=== PATIENT | male | born 1980 | race Two or more races ===

== ENCOUNTER 2016-07-08 09:10 | Inpatient (IN) | payer OTHER ==
[2016-07-08 09:37] VITALS: BMI 29.7
--- NOTE | 2016-07-08 11:28 | HP ---
COWS - Scale Resting Pulse: 1= [place] 81-100 Sweatin=Flushed/Facial Moisture Restless Observation: 3= Extraneous Movement Pupil Size: 2= Moderately Dilated Bone or Joint Aches: 2= Severe Diffuse Aches Runny Nose/ Eye Tearin= Runny Nose/Eyes GI Upset > 30mins: 3= Vomiting/Diarrhea Tremor Observation: 2= Slight Tremor Visible Yawning Observation: 2= >3x During Session Anxiety or Irritability: 2=Irritable/Anxious Goose Flesh Skin: 0=Smooth Skin COWS Score: 21 Admission ROS BHS - HPI Chief Complaint: i need help to stop using percocet and marijuana,alchohol abused Allergies/Adverse Reactions: Allergies Allergy/AdvReac Type Severity Reaction Status Date / Time lactose Allergy Severe Verified 07/08/16 10:05 History of Present Illness: this 36 years old male with percocet ans marijuana dependence,withdrawal,never been in detox hypertension non compliance nicotine dependence Exam Limitations: No Limitations - Ebola screening Have you traveled outside of the country in the last 21 days: No Have you had contact with anyone from an Ebola affected area: No Have you been sick,other than usual withdrawal symptoms: No Do you have a fever: No - Review of Systems Constitutional: Chills, Diaphoresis, Loss of Appetite, Malaise, Night Sweats, Changes in sleep, Weakness EENT: reports: Tearing, Nose Congestion Respiratory: reports: No Symptoms reported Cardiac: reports: No Symptoms Reported GI: reports: Nausea, Poor Appetite, Vomiting, Abdominal cramping : reports: No Symptoms Reported Musculoskeletal: reports: Back Pain, Joint Pain, Muscle Pain Integumentary: reports: Dryness Neuro: reports: Headache, Tremors Endocrine: reports: No Symptoms Reported Hematology: reports: No Symptoms Reported Psychiatric: reports: No Sypmtoms Reported Other Systems: Reviewed and Negative Patient History - Patient Medical History Hx Asthma: No Hx Chronic Obstructive Pulmonary Disease (COPD): No Hx Cardiac Disorders: No Hx Hypertension: Yes (Pt has been non-compliant meds.) Hx Seizures: No Hx Diabetes: No Hx Gastrointestinal Disorders: Yes (GERD) Hx Genitourinary Disorders: No Hx Sexually Transmitted Disorders: No Hx Renal Disease (ESRD): No Hx Thyroid Disease: No Hx Human Immunodeficiency Virus (HIV): No (last 01/09 negfative) Hx Hepatitis C: No Hx Depression: No Hx Suicide Attempt: No Hx Bipolar Disorder: No Hx Schizophrenia: No Other Medical History: no suicidal,no homicidal - Patient Surgical History Past Surgical History: Yes Hx Neurologic Surgery: No Hx Cataract Extraction: No Hx Cardiac Surgery: No Hx Lung Surgery: No Hx Breast Surgery: No Hx Breast Biopsy: No Hx Abdominal Surgery: No Hx Appendectomy: Yes (1998) Hx Cholecystectomy: No Hx Genitourinary Surgery: No Hx Section: No Hx Orthopedic Surgery: No Anesthesia Reaction: No - PPD History Previous Implant?: Yes Documented Results: Positive w/o proof Implanted On Prior R Admission?: No PPD to be Administered?: No - Smoking Cessation Smoking history: Never smoked Aproximately how many cigarettes per day: 0 - Substance & Tx. History Hx Alcohol Use: Yes Hx Substance Use: Yes Substance Use Type: Alcohol, Marijuana, Opiates Hx Substance Use Treatment: No - Substances Abused Marijuana/Hashish Route: Smoking Frequency: Daily Amount used: $20 Age of first use: 12 Date of Last Use: 07/08/16 Alcohol Route: Oral Frequency: 3-6 times per week Amount used: 1 pint cognac and up Age of first use: 15 Date of Last Use: 07/06/16 percocets Route: Oral Frequency: Daily Amount used: 30-40mg Age of first use: 35 Date of Last Use: 07/08/16 Family Disease History - Family Disease History Family History: Denies Admission Physical Exam S - Vital Signs Vital Signs: Vital Signs - 24 hr 07/08/16 09:35 Temperature 98.7 F Pulse Rate 83 Respiratory 18 Rate Blood Pressure 162/112 - Physical General Appearance: Yes: Moderate Distress, Tremorous, Irritable, Sweating, Anxious HEENTM: Yes: Nasal Congestion Respiratory: Yes: Lungs Clear Neck: Yes: Within Normal Limits Breast: Yes: Within Normal Limits Cardiology: Yes: Within Normal Limits, Regular Rhythm, Regular Rate, S1, S2 Abdominal: Yes: Within Normal Limits, Non Tender, Flat, Soft Genitourinary: Yes: Within Normal Limits Back: Yes: Muscle Spasm Musculoskeletal: Yes: Back pain, Joint Stiffness, Muscle Pain Extremities: Yes: Tremors Neurological: Yes: 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-XII NML intact, Fully Oriented, Alert, Motor Strength 5/5 Integumentary: Yes: Dry Lymphatic: Yes: Within Normal Limits - Diagnostic (1) Opioid dependence with withdrawal Current Visit: Yes Status: Acute (2) Cannabis dependence Current Visit: Yes Status: Acute (3) Alcohol dependence Current Visit: Yes Status: Acute (4) GERD (gastroesophageal reflux disease) Current Visit: Yes Status: Acute (5) PPD positive, treated Current Visit: Yes Status: Acute Cleared for Admission [facility] - Detox or Rehab [facility] Level of Care: Medically Managed Detox Regimen/Protocol: Methadone S Breath Alcohol Content Breath Alcohol Content: 0 Urine Drug Screen - Results Drug Screen Negative: No Urine Drug Screen Results: THC-Marijuana, OXY-Oxycodone
[2016-07-08] MEDS ORDERED: hydrOXYzine PAMOATE 50 MG CAPSULE (FP) PO PRN (11:39)
[2016-07-08] MEDS ORDERED: guaiFENesin/D-METHORPHAN HB 10 ML UNIT-DOSE CUPS PO PRN (11:39)
[2016-07-08] MEDS ORDERED: MENTHOL/PHENOL 1 EACH UD MM PRN (11:39)
[2016-07-08] MEDS ORDERED: MAGNESIUM CITRATE 300 ML BOTTLE PO PRN (11:39)
[2016-07-08] MEDS ORDERED: diphenhydrAMINE HCL 50 MG CAPSULE PO PRN (11:39)
[2016-07-08] MEDS ORDERED: ACETAMINOPHEN 325 MG TABLET (FP) PO PRN (11:39)
[2016-07-08] MEDS ORDERED: MAGNESIUM HYDROX 2400MG/30ML ORAL SUSPENSION 30 ML CUP PO PRN (11:39)
[2016-07-08] MEDS ORDERED: LOPERAMIDE HCL 2 MG CAPSULE PO PRN (11:39)
[2016-07-08] MEDS ORDERED: IBUPROFEN 400 MG TABLET (FP) PO PRN (11:39)
[2016-07-08] MEDS ORDERED: P-EPHED 60MG/TRIPROLIDI 2.5MG TABLET PO PRN (11:39)
[2016-07-08] MEDS ORDERED: HYDROCHLOROTHIAZIDE 25 MG TABLET (FP) PO ONE (12:12)
[2016-07-08] MEDS ORDERED: amLODIPine BESYLATE 10 MG TABLET (FP) PO ONE (12:13)
[2016-07-08] MEDS ORDERED: METHADONE HCL 10 MG TABLET (FOR DETOX USE ONLY) PO ONE ×2 (12:13→23:00)
[2016-07-08] MEDS ORDERED: cloNIDine HCL 0.1 MG TABLET PO ONE (12:14)
[2016-07-08] MEDS: diazePAM 5 MG TABLET PO PRN ×2 (12:42→17:38)
[2016-07-08 16:01] LABS: URINE APPEARANCE CLEAR; URINE BILIRUBIN NEGATIVE (NEGATIVE); URINE BLOOD NEGATIVE (NEGATIVE); URINE COLOR YELLOW; URINE GLUCOSE (UA) NEGATIVE (NEGATIVE); URINE KETONE NEGATIVE (NEGATIVE); URINE LEUK ESTERASE NEGATIVE (NEGATIVE); URINE NITRITE NEGATIVE (NEGATIVE); URINE PROTEIN NEGATIVE (NEGATIVE); URINE UROBILINOGEN NEGATIVE E.U./dl (0.2-1.0)
--- NOTE | 2016-07-08 16:33 | EKG ---
Test Reason : Blood Pressure : / mmHG Vent. Rate : 082 BPM Atrial Rate : 082 BPM P-R Int : 160 ms QRS Dur : 080 ms QT Int : 352 ms P-R-T Axes : 010 065 007 degrees QTc Int : 411 ms NORMAL SINUS RHYTHM NORMAL ECG WHEN COMPARED WITH ECG OF 02-AUG-2011 02:22, NO SIGNIFICANT CHANGE WAS FOUND Confirmed by OUMAR SALMERON MD ([id number]) on 07/08/2016 4:33:18 PM Referred By: Pillo Sutton Confirmed By:OUMAR SALMERON MD
[2016-07-08] MEDS: THIAMINE HCL 100 MG TABLET (FP) PO SCH (21:59)
[2016-07-09] MEDS: diazePAM 5 MG TABLET PO PRN ×3 (05:25→17:32)
[2016-07-09] MEDS ORDERED: HYDROCHLOROTHIAZIDE 25 MG TABLET (FP) PO SCH (10:00)
[2016-07-09] MEDS ORDERED: METHADONE HCL 10 MG TABLET (FOR DETOX USE ONLY) PO ONE (10:00)
[2016-07-09] MEDS: PRENATAL VITAMINS W/ FOLIC ACID TABLET (FP) PO SCH (10:17)
[2016-07-09] MEDS: HYDROCHLOROTHIAZIDE 25 MG TABLET (FP) PO SCH (10:17)
[2016-07-09] MEDS: amLODIPine BESYLATE 10 MG TABLET (FP) PO SCH (10:17)
[2016-07-09 10:33] LABS: MCH 30.1 pg (25.7-33.7); MCHC 34.3 g/dl (32.0-35.9); MEAN CELL VOLUME 87.7 fl (80-96); MEAN PLT VOLUME 8.7 fl (7.5-11.1); PLATELET COUNT 413 K/MM3 (134-434); RDW 13.2 % (11.9-15.9); WHITE BLOOD COUNT 7.2 K/mm3 (4.0-10.0)
[2016-07-09 10:55] LABS: ALK PHOS 92 U/L (45-117); ANION GAP 8 (8-16); BILIRUBIN,TOTAL 0.6 mg/dL (0.2-1.0); CALCIUM 9.4 mg/dL (8.5-10.1); CO2 27 mmol/L (21-32); CREATININE 1.1 mg/dL (0.7-1.3); GLUCOSE,RANDOM 93 mg/dL (74-106); SGOT/AST 13 U/L (15-37); SGPT/ALT 28 U/L (12-78); TOT PROT 7.7 g/dl (6.4-8.2)
--- NOTE | 2016-07-09 11:23 | PN ---
BHS COWS - Scale Resting Pulse: 2= [place] 101-120 Sweatin= Chills/Flushing Restless Observation: 3= Extraneous Movement Pupil Size: 2= Moderately Dilated Bone or Joint Aches: 4=Acute Joint/Muscle Pain Runny Nose/ Eye Tearin= Nasal Congestion GI Upset > 30mins: 1= Stomach Cramp Tremor Observation of Outstretched Hands: 2= Slight Tremor Visible Yawning Observation: 2= >3x During Session Anxiety or Irritability: 2=Irritable/Anxious Goose Flesh Skin: 0=Smooth Skin COWS Score: 20 BHS Progress Note (SOAP) Subjective: ANXIETY,TREMORS,SWEATS,INTERMITTENT SLEEP. Objective: 07/09/16 11:23 Vital Signs Temperature 96.9 F L 07/09/16 09:50 Pulse Rate 108 H 07/09/16 09:50 Respiratory Rate 18 07/09/16 09:50 Blood Pressure 156/98 07/09/16 09:50 O2 Sat by Pulse Oximetry (%) Laboratory Last Values WBC 7.2 K/mm3 (4.0-10.0) D 07/09/16 06:00 RBC 5.06 M/mm3 (4.00-5.60) 07/09/16 06:00 Hgb 15.2 GM/dL (11.7-16.9) 07/09/16 06:00 Hct 44.4 % (35.4-49) 07/09/16 06:00 MCV 87.7 fl (80-96) 07/09/16 06:00 MCHC 34.3 g/dl (32.0-35.9) 07/09/16 06:00 RDW 13.2 % (11.9-15.9) 07/09/16 06:00 Plt Count 413 K/MM3 (134-434) 07/09/16 06:00 MPV 8.7 fl (7.5-11.1) D 07/09/16 06:00 Sodium 140 mmol/L (136-145) 07/09/16 06:00 Potassium 4.3 mmol/L (3.5-5.1) 07/09/16 06:00 Chloride 105 mmol/L (98-107) 07/09/16 06:00 Carbon Dioxide 27 mmol/L (21-32) 07/09/16 06:00 Anion Gap 8 (8-16) 07/09/16 06:00 BUN 10 mg/dL (7-18) 07/09/16 06:00 Creatinine 1.1 mg/dL (0.7-1.3) 07/09/16 06:00 Creat Clearance w eGFR > 60 (>60) 07/09/16 06:00 Random Glucose 93 mg/dL (74-106) 07/09/16 06:00 Calcium 9.4 mg/dL (8.5-10.1) 07/09/16 06:00 Total Bilirubin 0.6 mg/dL (0.2-1.0) 07/09/16 06:00 AST 13 U/L (15-37) L D 07/09/16 06:00 ALT 28 U/L (12-78) 07/09/16 06:00 Alkaline Phosphatase 92 U/L (45-117) D 07/09/16 06:00 Total Protein 7.7 g/dl (6.4-8.2) 07/09/16 06:00 Albumin 4.0 g/dl (3.4-5.0) 07/09/16 06:00 Urine Color Yellow 07/08/16 14:00 Urine Appearance Clear 07/08/16 14:00 Urine pH 5.0 (5.0-8.0) 07/08/16 14:00 Ur Specific [place] 1.019 (1.001-1.035) 07/08/16 14:00 Urine Protein Negative (NEGATIVE) 07/08/16 14:00 Urine Glucose (UA) Negative (NEGATIVE) 07/08/16 14:00 Urine Ketones Negative (NEGATIVE) 07/08/16 14:00 Urine Blood Negative (NEGATIVE) 07/08/16 14:00 Urine Nitrite Negative (NEGATIVE) 07/08/16 14:00 Urine Bilirubin Negative (NEGATIVE) 07/08/16 14:00 Urine Urobilinogen Negative E.U./dl (0.2-1.0) 07/08/16 14:00 Ur Leukocyte Esterase Negative (NEGATIVE) 07/08/16 14:00 Assessment: 07/09/16 11:23 WITHDRAWAL SX Plan: CONTINUE DETOX
[2016-07-09] MEDS: MAG HYDROX/AL HYDROX/SIMETH 30 ML UNIT-DOSE CUP PO PRN (18:01)
[2016-07-09] MEDS ORDERED: cloNIDine HCL 0.1 MG TABLET ONE (22:02)
[2016-07-09] MEDS: THIAMINE HCL 100 MG TABLET (FP) PO SCH (22:18)
[2016-07-09] MEDS: cloNIDine HCL 0.1 MG TABLET PO PRN (22:18)
[2016-07-10] MEDS ORDERED: METHADONE HCL 5 MG TABLET (FOR DETOX USE ONLY) PO ONE (10:00)
[2016-07-10] MEDS: MAG HYDROX/AL HYDROX/SIMETH 30 ML UNIT-DOSE CUP PO PRN (10:38)
[2016-07-10] MEDS: PRENATAL VITAMINS W/ FOLIC ACID TABLET (FP) PO SCH (10:38)
[2016-07-10] MEDS: HYDROCHLOROTHIAZIDE 25 MG TABLET (FP) PO SCH (10:38)
[2016-07-10] MEDS: amLODIPine BESYLATE 10 MG TABLET (FP) PO SCH (10:38)
--- NOTE | 2016-07-10 16:50 | PN ---
S COWS - Scale Resting Pulse: 1= [place] 81-100 Sweatin=Flushed/Facial Moisture Restless Observation: 1= Difficult to Sit Still Pupil Size: 2= Moderately Dilated Bone or Joint Aches: 2= Severe Diffuse Aches Runny Nose/ Eye Tearin= Nasal Congestion GI Upset > 30mins: 1= Stomach Cramp Tremor Observation of Outstretched Hands: 0= None Yawning Observation: 2= >3x During Session Anxiety or Irritability: 0= None Goose Flesh Skin: 0=Smooth Skin COWS Score: 12 BHS Progress Note (SOAP) Objective: 07/10/16 16:49 Laboratory Tests 07/08/16 07/09/16 07/09/16 14:00 06:00 06:00 WBC 7.2 D RBC 5.06 Hgb 15.2 Hct 44.4 MCV 87.7 MCHC 34.3 RDW 13.2 Plt Count 413 MPV 8.7 D Sodium 140 Potassium 4.3 Chloride 105 Carbon Dioxide 27 Anion Gap 8 BUN 10 Creatinine 1.1 Creat Clearance w eGFR > 60 Random Glucose 93 Calcium 9.4 Total Bilirubin 0.6 AST 13 L D ALT 28 Alkaline Phosphatase 92 D Total Protein 7.7 Albumin 4.0 Urine Color Yellow Urine Appearance Clear Urine pH 5.0 Ur Specific [place] 1.019 Urine Protein Negative Urine Glucose (UA) Negative Urine Ketones Negative Urine Blood Negative Urine Nitrite Negative Urine Bilirubin Negative Urine Urobilinogen Negative Ur Leukocyte Esterase Negative RPR Titer 07/09/16 06:00 WBC RBC Hgb Hct MCV MCHC RDW Plt Count MPV Sodium Potassium Chloride Carbon Dioxide Anion Gap BUN Creatinine Creat Clearance w eGFR Random Glucose Calcium Total Bilirubin AST ALT Alkaline Phosphatase Total Protein Albumin Urine Color Urine Appearance Urine pH Ur Specific [place] Urine Protein Urine Glucose (UA) Urine Ketones Urine Blood Urine Nitrite Urine Bilirubin Urine Urobilinogen Ur Leukocyte Esterase RPR Titer Nonreactive Vital Signs - 24 hr 07/09/16 07/09/16 07/10/16 17:47 22:14 00:30 Temperature 97.9 F 97.5 F L Pulse Rate 95 H 84 Respiratory 19 18 18 Rate Blood Pressure 140/99 150/102 07/10/16 07/10/16 07/10/16 03:30 06:37 09:45 Temperature 97.6 F 96 F L Pulse Rate 82 82 95 H Respiratory 18 18 20 Rate Blood Pressure 136/100 138/89 07/10/16 14:21 Temperature 98.1 F Pulse Rate 93 H Respiratory 18 Rate Blood Pressure 137/94 Assessment: 07/10/16 16:49 ongoing withdrawal Plan: continue detox protocol
[2016-07-10] MEDS: THIAMINE HCL 100 MG TABLET (FP) PO SCH (22:03)
[2016-07-10] MEDS: diazePAM 5 MG TABLET PO PRN (22:03)
[2016-07-11] MEDS ORDERED: METHADONE HCL 5 MG TABLET (FOR DETOX USE ONLY) PO ONE (10:00)
[2016-07-11] MEDS: PRENATAL VITAMINS W/ FOLIC ACID TABLET (FP) PO SCH (10:30)
[2016-07-11] MEDS: amLODIPine BESYLATE 10 MG TABLET (FP) PO SCH (10:31)
[2016-07-11] MEDS: HYDROCHLOROTHIAZIDE 25 MG TABLET (FP) PO SCH (10:31)
[2016-07-11] MEDS: MAG HYDROX/AL HYDROX/SIMETH 30 ML UNIT-DOSE CUP PO PRN (13:51)
--- NOTE | 2016-07-11 15:59 | PN ---
BHS Progress Note (SOAP) Subjective: N/V/D, interrupted sleep, anxious, tremor Objective: 07/11/16 15:58 Last Vital Signs Temp Pulse Resp BP Pulse Ox 97.1 F L 92 H 18 143/97 07/11/16 13:45 07/11/16 13:45 07/11/16 13:45 07/11/16 13:45 Laboratory Tests 07/08/16 07/09/16 07/09/16 14:00 06:00 06:00 WBC 7.2 D RBC 5.06 Hgb 15.2 Hct 44.4 MCV 87.7 MCHC 34.3 RDW 13.2 Plt Count 413 MPV 8.7 D Sodium 140 Potassium 4.3 Chloride 105 Carbon Dioxide 27 Anion Gap 8 BUN 10 Creatinine 1.1 Creat Clearance w eGFR > 60 Random Glucose 93 Calcium 9.4 Total Bilirubin 0.6 AST 13 L D ALT 28 Alkaline Phosphatase 92 D Total Protein 7.7 Albumin 4.0 Urine Color Yellow Urine Appearance Clear Urine pH 5.0 Ur Specific [place] 1.019 Urine Protein Negative Urine Glucose (UA) Negative Urine Ketones Negative Urine Blood Negative Urine Nitrite Negative Urine Bilirubin Negative Urine Urobilinogen Negative Ur Leukocyte Esterase Negative RPR Titer 07/09/16 06:00 WBC RBC Hgb Hct MCV MCHC RDW Plt Count MPV Sodium Potassium Chloride Carbon Dioxide Anion Gap BUN Creatinine Creat Clearance w eGFR Random Glucose Calcium Total Bilirubin AST ALT Alkaline Phosphatase Total Protein Albumin Urine Color Urine Appearance Urine pH Ur Specific [place] Urine Protein Urine Glucose (UA) Urine Ketones Urine Blood Urine Nitrite Urine Bilirubin Urine Urobilinogen Ur Leukocyte Esterase RPR Titer Nonreactive Labs noted Assessment: 07/11/16 15:59 Withdrawal symptoms Plan: Continue detox Encouraged to drink lots of water for hydration, consider repeating BMP if no improvement
[2016-07-11] MEDS: THIAMINE HCL 100 MG TABLET (FP) PO SCH (22:17)
[2016-07-11] MEDS: cloNIDine HCL 0.1 MG TABLET PO PRN (22:18)
[2016-07-12] MEDS ORDERED: METHADONE HCL 10 MG TABLET (FOR DETOX USE ONLY) PO ONE (10:00)
[2016-07-12] MEDS: HYDROCHLOROTHIAZIDE 25 MG TABLET (FP) PO SCH (10:22)
[2016-07-12] MEDS: PRENATAL VITAMINS W/ FOLIC ACID TABLET (FP) PO SCH (10:22)
[2016-07-12] MEDS: amLODIPine BESYLATE 10 MG TABLET (FP) PO SCH (10:22)
--- NOTE | 2016-07-12 14:05 | PN ---
BHS Progress Note (SOAP) Subjective: SWEATING,INTERRUPTED SLEEP,RESTLESS Objective: 07/12/16 14:05 Vital Signs - 8 hr 07/12/16 07/12/16 06:44 10:32 Temperature 98.1 F 97.4 F L Pulse Rate 87 92 H Respiratory 18 18 Rate Blood Pressure 134/88 122/84 Laboratory Tests 07/08/16 07/09/16 07/09/16 14:00 06:00 06:00 WBC 7.2 D RBC 5.06 Hgb 15.2 Hct 44.4 MCV 87.7 MCHC 34.3 RDW 13.2 Plt Count 413 MPV 8.7 D Sodium 140 Potassium 4.3 Chloride 105 Carbon Dioxide 27 Anion Gap 8 BUN 10 Creatinine 1.1 Creat Clearance w eGFR > 60 Random Glucose 93 Calcium 9.4 Total Bilirubin 0.6 AST 13 L D ALT 28 Alkaline Phosphatase 92 D Total Protein 7.7 Albumin 4.0 Urine Color Yellow Urine Appearance Clear Urine pH 5.0 Ur Specific [place] 1.019 Urine Protein Negative Urine Glucose (UA) Negative Urine Ketones Negative Urine Blood Negative Urine Nitrite Negative Urine Bilirubin Negative Urine Urobilinogen Negative Ur Leukocyte Esterase Negative RPR Titer 07/09/16 06:00 WBC RBC Hgb Hct MCV MCHC RDW Plt Count MPV Sodium Potassium Chloride Carbon Dioxide Anion Gap BUN Creatinine Creat Clearance w eGFR Random Glucose Calcium Total Bilirubin AST ALT Alkaline Phosphatase Total Protein Albumin Urine Color Urine Appearance Urine pH Ur Specific [place] Urine Protein Urine Glucose (UA) Urine Ketones Urine Blood Urine Nitrite Urine Bilirubin Urine Urobilinogen Ur Leukocyte Esterase RPR Titer Nonreactive LABS NOTED Assessment: 07/12/16 14:05 WITHDRAWAL SX. Plan: CONTINUE DETOX
[2016-07-12] MEDS: THIAMINE HCL 100 MG TABLET (FP) PO SCH (22:21)
[2016-07-13] MEDS ORDERED: METHADONE HCL 5 MG TABLET (FOR DETOX USE ONLY) PO ONE (06:00)
[2016-07-13] MEDS: HYDROCHLOROTHIAZIDE 25 MG TABLET (FP) PO SCH (09:19)
[2016-07-13] MEDS: PRENATAL VITAMINS W/ FOLIC ACID TABLET (FP) PO SCH (09:19)
[2016-07-13] MEDS: amLODIPine BESYLATE 10 MG TABLET (FP) PO SCH (09:19)
[2016-07-13 09:30] VITALS: BP 148/98; PULSE 109; TEMP 97.7
--- NOTE | 2016-07-13 10:17 | DS ---
[facility] Detox Discharge Summary Admission Date: 07/08/16 Discharge Date: 07/13/16 - History Present History: Opioid Dependence Additional Comments: DETOX COMPLETED. PT INSTRUCTED TO F/U WITH PMD MELISSA RUSSELL AT [place], [place] FOR MEDICAL MANAGEMENT. - Physical Exam Results Vital Signs: Vital Signs Temperature 97.7 F 07/13/16 09:30 Pulse Rate 109 H 07/13/16 09:30 Respiratory Rate 20 07/13/16 09:30 Blood Pressure 148/98 07/13/16 09:30 O2 Sat by Pulse Oximetry (%) Pertinent Admission Physical Exam Findings: WITHDRAWAL SX - Treatment Hospital Course: Detox Protocol Followed, Detoxed Safely, Responded well, Discharged Condition Good, Rehab Referral Accepted Patient has Accepted a Rehab Referral to: [facility]- [facility] OPD - Medication Discharge Medications: Ambulatory Orders Hydrochlorothiazide [Hydrodiuril] 25 tab PO DAILY 08/02/11 Amlodipine Besylate [Norvasc -] 10 mg PO DAILY #30 tablet 07/13/16 Hydrochlorothiazide [Hctz -] 25 mg PO DAILY #30 tablet 07/13/16 - Diagnosis (1) GERD (gastroesophageal reflux disease) Current Visit: Yes Status: Chronic Qualifiers: Esophagitis presence: without esophagitis Qualified Code(s): K21.9 - Gastro-esophageal reflux disease without esophagitis (2) Opioid dependence with withdrawal Current Visit: Yes Status: Acute (3) Hypertension Current Visit: Yes Status: Chronic Qualifiers: Hypertension type: essential hypertension Qualified Code(s): I10 - Essential (primary) hypertension - AMA Did Patient Leave Against Medical Advice: No
== END 2016-07-13 09:20 | disposition home or self-care (01) | DRG 773 ==
LOC: YASAS 09:10 → Y3N 11:33
PROVIDERS: ADMIT Internal Medicine; ATTEND Internal Medicine
PROC: HZ2ZZZZ Detoxification Services for Substance Abuse Treatment (ICD-10-PCS; principal; 2016-07-08)
DX: F11.23 Opioid dependence with withdrawal (principal); F10.20 Alcohol dependence, uncomplicated; F12.20 Cannabis dependence, uncomplicated; K21.9 Gastro-esophageal reflux disease without esophagitis; I10 Essential (primary) hypertension; Z91.14 Patient's other noncompliance with medication regimen; R76.11 Nonspecific reaction to tuberculin skin test without active tuberculosis
CPT/HCPCS: 36415; 71010-TC; 80053; 81003; 85027; 86593; 93005; 93010